=== PATIENT | female | born 1955 | race Caucasian/White ===

== ENCOUNTER → 2018-02-10 06:58 | Outpatient (CLI) | payer OTHER, SELFPAY ==
[2018-02-16 12:00] LABS: HPV APTIMA, High Risk Negative (Negative)
== END ==
PROVIDERS: Family Provider Family Medicine; PCP Family Medicine; Visit Provider Nurse Practitioner Women's Health
DX: Z12.4 Encounter for screening for malignant neoplasm of cervix (principal)
CPT/HCPCS: 88175; G0145

== ENCOUNTER → 2018-03-05 10:31 | Outpatient (CLI) | payer OTHER, SELFPAY ==
--- NOTE | 2018-03-05 10:33 | BI_ITS ---
MAMMOGRAPHY - BILATERAL SCREENING REASON FOR EXAM: Female, 63 years old. Routine annual screening examination. PERTINENT HISTORY: Non-contributory. Prior bilateral excisional breast biopsies. TECHNIQUE: Digital bilateral breast saurabh (3D mammographic acquisition) in the CC and MLO projections. 2-D mediolateral oblique (MLO) and craniocaudad (CC) views of both breasts were obtained. CAD: Full Field Digital Mammography with Computer Added Detection was performed. COMPARISON: No comparison mammograms available at this time. If any prior films become available, an addendum to this report can be generated. FINDINGS: Breast Composition: The breasts are heterogeneously dense, which may obscure small masses. There is a 7.2 mm ill-defined nodular density in the mid retroareolar region of the left breast. The patient will be recalled for additional views including compression spot views of the left breast and 90 degree lateral view. There is a densely calcified 1.3 cm x 1.3 cm in the mid medial aspect of the right breast incomplete with a calcified fibroadenoma. No other significant abnormalities are identified. BI/SCREENING MAMM (CAD), BILAT IMPRESSION: Density calcified nodule in the right breast as described. 7.2 mm ill-defined nodule in the mid portion of the left breast in the retroareolar region. Compression spot views of the left breast as well as 90 degree lateral view is recommended. Recall Side: Left Breast ASSESSMENT CATEGORY: BIRADS Category 0: Incomplete. Need additional imaging evaluation. A letter regarding these results will be sent to the patient by the facility within 30 days. Approximately 10% of breast cancers are not detected by mammography. A normal mammogram should not delay biopsy of a clinically suspicious abnormality. [id number] Electronically Signed: Antione Walker MD at 10:54 EDT Tel [phone], Service support ,
== END ==
PROVIDERS: Family Provider Family Medicine; PCP Family Medicine; Visit Provider Nurse Practitioner Women's Health
DX: Z12.31 Encounter for screening mammogram for malignant neoplasm of breast (principal)
CPT/HCPCS: 77063; 77067

== ENCOUNTER → 2018-03-09 09:41 | Outpatient (CLI) | payer OTHER, SELFPAY ==
--- NOTE | 2018-03-09 09:45 | BI_ITS ---
MAMMOGRAPHY - BILATERAL SCREENING REASON FOR EXAM: Female, 63 years old. Routine annual screening examination. PERTINENT HISTORY: Abnormal screening mammogram. TECHNIQUE: Compression spot views of the left breast in the craniocaudad and mediolateral oblique projections were obtained. CAD: Full Field Digital Mammography with Computer Added Detection was performed. COMPARISON: Comparison is made with prior study dated March 05, 2018. FINDINGS: Breast Composition: The breasts are heterogeneously dense, which may obscure small masses. Persistent irregular nodular density in the retroareolar region of the left breast as described. On the MLO view I suspect this to be slightly in the superior quadrant. Correlation with ultrasound is recommended. No other significant abnormalities are identified. BI/DIAG MAMM W/CAD, UNILAT IMPRESSION: Persistent nodular density in the left breast as described. Correlation with ultrasound is recommended. ASSESSMENT CATEGORY: BIRADS Category 0: Incomplete. Need additional imaging evaluation. A letter regarding these results will be sent to the patient by the facility within 30 days. Approximately 10% of breast cancers are not detected by mammography. A normal mammogram should not delay biopsy of a clinically suspicious abnormality. [id number] Electronically Signed: Antione Walker MD at 10:45 EDT Tel [phone], Service support ,
--- NOTE | 2018-03-09 10:42 | US_ITS ---
STUDY: ULTRASOUND BREAST - LEFT REASON FOR EXAM: Female, 63 years old. Abnormal screening mammogram. TECHNIQUE: Axial and longitudinal images of the LEFT breast were performed with a high resolution ultrasound transducer. COMPARISON: Comparison is made with prior mammogram dated March 09, 2018 and March 05, 2018. FINDINGS: LEFT Breast: 2 small adjacent cysts are seen at the 12:00 in the breast at 3 cm from nipple. This measures 7.7 mm x 4.7 mm x 4.4 mm. Focally dilated duct is also seen at the 9:00 position of the breast. US/Breast Limited Unilateral IMPRESSION: The mammographic abnormality corresponds to 2 small adjacent cysts and focally dilated duct as described. ASSESSMENT CATEGORY: BIRADS Category 2: Benign. A letter regarding these results will be sent to the patient by the facility within 30 days. Electronically Signed: Antione Walker MD at 12:28 EDT Tel [phone], Service support ,
== END ==
PROVIDERS: Family Provider Family Medicine; PCP Family Medicine; Visit Provider Nurse Practitioner Women's Health
DX: R92.8 Other abnormal and inconclusive findings on diagnostic imaging of breast (principal)
CPT/HCPCS: 76642; 77065

== ENCOUNTER 2018-03-17 12:13 | Day surgery (SDC) | payer OTHER, SELFPAY ==
--- NOTE | 2018-03-11 14:47 | EKG12_ITS ---
Test Reason : PRE OP Blood Pressure : / mmHG Vent. Rate : 089 BPM Atrial Rate : 089 BPM P-R Int : 154 ms QRS Dur : 084 ms QT Int : 364 ms P-R-T Axes : 063 018 075 degrees QTc Int : 442 ms Normal sinus rhythm Normal ECG Confirmed by JUAN KELLY, CHARLY ([id number]), photographic editor MAR FRIAS ([id number]) on 03/12/2018 1:49:46 PM Referred By: Shivani Meracdo Confirmed By:CHARLY MARTINEZ MD
[2018-03-11 15:52] LABS: Hematocrit 39.2 % (37-47); Hemoglobin 13.1 g/dl (12.0-15.0); Mean Corp Hgb Conc 33.4 g/gl (32-36); Mean Corpuscular Hgb 29.6 pg (27.0-32.0); Mean Corpuscular Volume 88.7 fL (81-99); Mean Platelet Vol. 9.4 fl (6.2-12.0); Platelet Count 210 K/mm3 (150-450); Red Blood Count 4.42 M/mm3 (4.2-5.4); White Blood Count 5.8 K/mm3 (4.4-11.0)
[2018-03-11 15:58] LABS: Anion Gap 7 (5-15); BUN 12 mg/dL (7-18); BUN/Creat Ratio 11.1 RATIO (10-20); Chloride 114 mmol/L (98-107); Creatinine, Serum 1.08 mg/dL (0.55-1.02); EST Glomerular Filtration Rate 55 mL/min (>60); Est Glom Filt Rate - Afr Amer 66 mL/min (>60); Glucose 88 mg/dL (74-106); Potassium 3.5 mmol/L (3.5-5.1); Sodium Level 142 mmol/L (136-145)
[2018-03-11 16:01] LABS: Scan Indicated on CBC? Y/N NO
[2018-03-17] VITALS (7 sets, daily range): BP systolic 129–139; BP diastolic 74–84; PULSE 58–77; RESP 14–16; TEMP 36.3–37.1; O2SAT 92–100; BMI 31.2
--- NOTE | 2018-03-17 07:18 | HP.PCM_ITS ---
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 Is patient in pain?: No Allergies Sulfa (Sulfonamide Antibiotics) Allergy (Mild, Verified 02/10/18 14:07) Other Medications NK [NK] 02/10/18 [History Confirmed 02/10/18] Is last menstrual period known: No Post menopausal: Yes Patient : No : No PFSH Surgical History Benign breast cyst in female (Acute) Social History Smoking Status: Never smoker alcohol intake: never substance use type: does not use caffeine: Yes what type of physical activity do you participate in: walking seatbelt use: always do you feel safe at home: Yes additional social history: Bill- Both are Retired Pregancy History 0 Elective abortions Hx Para Spontaneous abortions Hx # Term Pregnancies Ectopic pregnancies Hx # Pregnancies Multiple births # of living children HPI NEW annual: Details: ELINOR CAZARES is a 62 year old who presents for new patient annual exam. Last PAP: > 5 yr History of abnormal PAP: no Last mammogram: >5 yr History of abnormal mammogram: negative biopsy X 2 (cysts) Colon cancer screening: none Denies any concerns or recent vaginal bleeding Female Reproductive History Menopausal Treatment: No HRT ROS Const Constitutional: Denies fatigue, weight gain or weight loss Cardio Card: Denies chest pain Resp Resp: Denies cough or shortness of breath with activity GI GI: Denies abdominal pain, constipation, change in stools, vomiting or bloating : Reports as per HPI; denies urinary frequency, pelvic pain, urinary urgency, vaginal discharge, vaginal itching, urinary incontinence or difficulty urinating Exam Const General: cooperative, healthy appearing, no acute distress, well developed Orientation: alert, oriented to person, oriented to place HENIN Head: normal to inspection Neck Neck: normal visual inspection Thyroid: thyroid normal Lymphatic: no lymphadenopathy noted Chest Breast inspection: normal inspection of the breasts, normal inspection of the axillae Breast palpation: normal palpation of the breasts, normal palpation of the axillae, no axillary lymphadenopathy Resp Effort & Inspection: normal respiratory effort GI Palpation: soft, nontender, no masses Rectal Exam: mass, deferred External Female Exam: normal external appearance, normal appearance of the urethra Urethra: normal appearance of the urethra, normal palpation Speculum Exam - Vagina: normal appearance of the vagina, normal vaginal discharge Speculum Exam - Cervix: cervical os open (elongated 2cm cervical polyp, wide base, nonfriable. ), other (pap collected) Bimanual Exam- Vagina & Uterus: normal bimanual exam, uterine size normal, uterine shape normal, uterus non-tender Bimanual Exam- Adnexa, other: normal adnexae, no adnexal masses, adnexae non- tender, pelvic support normal Pelvic Support: normal OB/External & Speculum: cervical os open (elongated 2cm cervical polyp, wide base, nonfriable. ) Speculum Exam: cervical os open (elongated 2cm cervical polyp, wide base, nonfriable. ) Neuro General: alert, oriented x3 Psych Affect: normal affect Assessment & Plan Problems postmenopausal bleeding 4. Endocervical polyp N84.1 plan endocervical polyp removal, d and c hysterosocpy i have seen the patient and performed any clinically relevant updates
--- NOTE | 2018-03-17 13:50 | EMB_PTH ---
PATIENT: ELINOR CAZARES LOC: [facility] – [place] U#:[id number] AGE/SX: 63/F ROOM: RE03/17/[address]: Dr. Shivani Mercado MD : [id number] BED: DIS: 03/17/2018 SPEC #: [id number] RECD: 03/17/18 16:14 STATUS: FARSHAD BHUPINDER #: [id number] NEISHA: 03/17/18 13:[address]: Shivani Mercado DEPT: SURGICAL PATHOLOGY RECD BY: Kg Hunt ENTERED: 03/18/18 09:08 SP TYPE: ENDOM BX/C UNIQUE DR: Dr. Isai Schulte, DO Tissues: Endometrium, NOS Procedures: Surgery Specimen Level IV HEADER OPERATION: Hysteroscopy, dilation and curettage, myomectomy PRE-OP DIAGNOSIS: Postmenopausal bleeding, endocervical polyp TISSUE SUBMITTED: Endometrial curettings, polyps MICROSCOPIC DIAGNOSIS Endometrial curettings and polyps: Atrophic endometrium. Fragments of benign endometrial polyp with cystic changes. Fragments of myometrium. A piece of benign endocervical polyp. RAUL:clare 03/19/18 MICROSCOPIC DESCRIPTION Slides are reviewed. GROSS DESCRIPTION Received is one container labeled with the patient's name and not further designated. The specimen consists of multiple fragments of hemorrhagic soft tissue that in aggregate measure 2 x 1.5 x 0.2 cm. The specimen is totally submitted in one cassette. Also present in the container are two pieces of conway polypoid tissue measuring in aggregate 2 x 2 x 0.3 cm. The entire specimen is submitted in two cassettes. Cassette 2 contains the fragment of polyp. / RAUL:clare 03/18/18 TC:5 CPT: 27058
--- NOTE | 2018-03-17 14:35 | PCM.DC.D&C ---
Discharge Diet: No Restrictions Discharge Activity: Return to Normal Activity, May Shower, May Take a Tub Bath Allergies/Adverse Reactions: Allergies Sulfa (Sulfonamide Antibiotics) Allergy (Mild, Verified 03/10/18 10:47) Other Medications to take at Discharge NK [NK] 02/10/18 Primary Care Physician: Isai Schulte DO [Primary Care Provider] - Please Follow Up With: Shivani Mercado MD - [phone]
[2018-03-17] MEDS: Ondansetron 4 MG/2 ML Vial IM (14:52)
[2018-03-17] MEDS: FERRIC SUBSULFATE 8 GM SOLN (15:34)
--- NOTE | 2018-03-19 06:28 | PCM.OPRPT ---
Problem List (1) Postmenopausal bleeding Status: Acute (2) Endocervical polyp Status: Acute Report of Operation Date of Procedure: 03/17/18 Pre-Operative Diagnosis: PMB Post-Operative Diagnosis: same Surgery/Procedure Performed:: d and c hysteroscopy, hysteroscopic resection of fibroids Description of Surgical Findings:: endometrial polyp and submucosal fibroids Type of Anesthesia:: Local MAC Special Medications: none Specimen's removed: none Drains: none Estimated Blood Loss (mL): minimal Fluids Replaced: crystalloid Description of Procedure: Patient was prepped and draped in a normal sterile fashion under MAC anesthesia. A weighted speculum was placed in the vagina and the anterior lip of the cervix was grasped with a single-tooth tenaculum. A paracervical block was placed with 1% lidocaine. Cervix was progressively dilated to allow passage of a 7 and then 9 mm hysteroscope. The lining was fully visualized and noted to have a large polyp and 2 submucosal fibroids approximately 5-10 mm in size . Uterine sounded to 10 cm. Curettage was performed and then the polyp was removed with forceps, followed by hysteroscopic resection of the fibroids using the jimenez resectoscope, sent to pathology. All instruments were removed from the vagina and excellent hemostasis was noted after application of monsel's paste. Patient was awoken and taken to recovery in stable condition. Grafts/Implants Used: none - Complications none
== END 2018-03-17 17:07 | disposition home or self-care (01) ==
LOC: SDC 12:14 → AC 12:16
PROVIDERS: Family Provider Family Medicine; PCP Family Medicine; Visit Provider Obstetrics & Gynecology
PROC: 0UDB8ZZ Extraction of Endometrium, Via Natural or Artificial Opening Endoscopic (ICD-10-PCS; CPT 58558; principal; 2018-03-17 13:40)
DX: D25.0 Submucous leiomyoma of uterus (principal); N84.0 Polyp of corpus uteri; N95.0 Postmenopausal bleeding
CPT/HCPCS: 00952; 58561; 36415; 80048; 85027; 86850; 86900; 88305; J7120